=== PATIENT | male | born 1990 | race Caucasian/White ===

== ENCOUNTER 2024-10-13 15:20 | Emergency (ER) | payer BC ==
[~2024-10-13] VITALS: Ht 185.4 cm; Wt 90.0 kg
[2024-10-13 15:29] VITALS: BP 150/84; TEMP 98.3; O2SAT 99
[2024-10-13 15:30] VITALS: PULSE 113; RESP 18; O2SAT 96
== END 2024-10-13 16:00 | disposition left against medical advice (07) ==
LOC: ER 15:30
DX: R56.9 Unspecified convulsions (principal); Z53.21 Procedure and treatment not carried out due to patient leaving prior to being seen by health care provider